=== PATIENT | female | born 1960 | race Caucasian/White ===

== ENCOUNTER 2020-02-19 13:32 | Emergency (ER) | payer OTHER, BC ==
[2020-02-19] MEDS ORDERED: Sodium Chloride 0.9% 10 ML Syringe FLUSH PRN (13:49)
[2020-02-19 14:08] LABS: ANION GAP 12.9 mEq/L (7-13); CHLORIDE,CL 105 mmol/L (98-107); SODIUM,NA 143 mmol/L (136-145)
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
[2020-02-19] MEDS ORDERED: fentaNYL 100 MCG/2 ML SDV IVPUSH ONE (14:36)
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
== END 2020-02-19 15:42 | disposition home or self-care (01) ==
LOC: DL.ED 13:32
DX: S50.312A Abrasion of left elbow, initial encounter (principal); S70.212A Abrasion, left hip, initial encounter; Z88.6 Allergy status to analgesic agent; Z91.040 Latex allergy status; Z88.5 Allergy status to narcotic agent; Z88.2 Allergy status to sulfonamides; Z88.0 Allergy status to penicillin; Z91.048 Other nonmedicinal substance allergy status; Z79.899 Other long term (current) drug therapy; V29.9XXA Motorcycle rider (driver) (passenger) injured in unspecified traffic accident, initial encounter
CPT/HCPCS: 36415; 70450; 71045; 72125; 72131; 72170; 73120; 80053; 80307; 84484; 85025; 93005; 96374; 99285; J3010

== ENCOUNTER 2020-03-05 04:12 | Observation (INO) | payer BC ==
[2020-03-05] MEDS ORDERED: Sodium Chloride 0.9% 1,000 ML IV ONE (04:28)
[2020-03-05 05:05] LABS: ANION GAP 10.2 mEq/L (7-13); CHLORIDE,CL 103 mmol/L (98-107); SODIUM,NA 140 mmol/L (136-145)
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
[2020-03-05] MEDS ORDERED: Ondansetron 4 MG/2 ML SDV IVPUSH PRN (07:27)
[2020-03-05] MEDS ORDERED: Sodium Chloride 0.9% 10 ML Syringe FLUSH PRN (07:27)
--- NOTE | 2020-03-05 10:40 | CT ---
PROCEDURE INFORMATION: Exam: CT Head Without Contrast Exam date and time: 03/05/2020 10:30 AM Age: 59 years old Clinical indication: Other: Confusion, head trauma; Additional info: Head trauma, confusion TECHNIQUE: Imaging protocol: Computed tomography of the head without contrast. Radiation optimization: All CT scans at this facility use at least one of these dose optimization techniques: automated exposure control; mA and/or kV adjustment per patient size (includes targeted exams where dose is matched to clinical indication); or iterative reconstruction. COMPARISON: CT Head wo Cont 02/19/2020 1:47 PM FINDINGS: Brain: Normal. No hemorrhage. Unremarkable white matter. No mass effect. Ventricles: Normal. No ventriculomegaly. Bones/joints: Unremarkable. No acute fracture. Sinuses: Visualized sinuses are unremarkable. No fluid levels. Mastoid air cells: Visualized mastoid air cells are well aerated. Soft tissues: Unremarkable. IMPRESSION: No acute intracranial abnormality.
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
[2020-03-05] MEDS: Levothyroxine 88 MCG Tab PO SCH (12:48)
[2020-03-05] MEDS: Sodium Chloride 0.9% 1,000 ML IV SCH ×2 (13:21→21:43)
[2020-03-05] MEDS ORDERED: Dextrose 5%-0.9% NaCl with KCl 1,000 ML IV SCH (23:00)
[2020-03-06] MEDS: Levothyroxine 88 MCG Tab PO SCH (05:45)
[2020-03-06 07:16] LABS: ANION GAP 10.7 mEq/L (7-13); CHLORIDE,CL 108 mmol/L (98-107); SODIUM,NA 143 mmol/L (136-145)
--- NOTE | 2020-03-06 12:32 | PCM.DCSUM1 ---
Discharge Summary - Hospital Course Free Text/Narrative:: 59-year-old with a history of anxiety, hypothyroidism. Presented with intentional overdose with unknown amounts of Xanax and Ambien. acute metabolic encephalopathy had negative Tylenol, salicylate level as well. CT head negative improved with Supportive measures Consulted behavioral health have safe discharge plan discharge with daughter hold tommie, xanax for now f/up with [facility] f/up with PMD Hypothyroidism Continue Synthroid Diagnosis: Stroke: No - Discharge Data Discharge Date: 03/06/20 Discharge Disposition: Home, Self-Care 01 Condition: Stable - Referral to Home Health Primary Care Physician: Kasandra Sal NP - Discharge Diagnosis/Problem(s) (1) Acute metabolic encephalopathy SNOMED Code(s): 13980197, 738014890 ICD Code: G93.41 - METABOLIC ENCEPHALOPATHY Status: Acute Current Visit: Yes (2) Hypothyroidism SNOMED Code(s): 16526467 ICD Code: E03.9 - HYPOTHYROIDISM, UNSPECIFIED Status: Acute Current Visit: Yes (3) Drug overdose, intentional SNOMED Code(s): 39581568 ICD Code: T50.902A - POISONING BY UNSP DRUG/MEDS/BIOL SUBST, SELF-HARM, INIT Status: Acute Current Visit: No Qualifiers: Encounter type: initial encounter Qualified Code(s): T50.902A - Poisoning by unspecified drugs, medicaments and biological substances, intentional self- harm, initial encounter - Patient Summary/Data Consults: Consultations 03/05/20 13:19 Consult to Case Management/Construction Accountant [CONS] Routine - Discharge Plan *PRESCRIPTION DRUG MONITORING PROGRAM REVIEWED*: Not Applicable *COPY OF PRESCRIPTION DRUG MONITORING REPORT IN PATIENT RONAL: Not Applicable Home Medications: Home Meds Cholecalciferol (Vitamin D3) [Vitamin D3] 500 unit PO DAILY 02/19/20 [History] Levothyroxine Sodium 88 mcg PO DAILY 02/19/20 [History] Venlafaxine HCl [Venlafaxine ER] 37.5 mg PO DAILY 03/05/20 [History] Oxygen Therapy Mode: Room Air Patient Handouts: Intentional Drug Overdose Referrals: Kasandra Sal NP [Primary Care Provider] - (in 2-3 days) - Discharge Summary/Plan Comment DC Time >30 min.: No - General Info Date of Service: 03/06/20 Functional Status: Reports: Tolerating Diet - Review of Systems General: Denies: Fever Pulmonary: Denies: Shortness of Breath Cardiovascular: Denies: Chest Pain, Edema Gastrointestinal: Denies: Abdominal Pain Neurological: Denies: Confusion, Trouble Speaking, Difficulty Walking Psychiatric: Denies: Confusion, Anxiety, Suicidal Ideation, Homicidal Ideation - Patient Data Vitals - Most Recent: Last Vital Signs Temp 97.7 F 03/06/20 08:04 Pulse 88 03/06/20 08:04 Resp 20 03/06/20 08:04 BP 137/80 03/06/20 08:04 Pulse Ox 96 03/06/20 08:04 Weight - Most Recent: 231 lb 2 oz I&O - Last 24 hours: Intake & Output 03/05/20 03/06/20 03/06/20 22:59 06:59 14:59 Intake Total 1531 410 Output Total 900 2300 Balance 631 -2300 410 Lab Results - Last 24 hrs: Laboratory Results - last 24 hr 03/05/20 03/05/20 03/06/20 Range/Units 16:45 22:45 05:30 WBC (5.0-10.0) 10^3/uL RBC (4.2-5.4) 10^6/uL Hgb (12.0-16.0) g/dL Hct (37.0-47.0) % MCV (80-100) fL MCH (27.0-34.0) pg MCHC (33.0-35.0) g/dL Plt Count (150-450) 10^3/uL Neut % (Auto) (42.2-75.2) % Lymph % (Auto) (20.5-50.1) % [place] % (Auto) (2-8) % Eos % (Auto) (1.0-3.0) % Baso % (Auto) (0.0-1.0) % Sodium 143 (136-145) mmol/L Potassium 3.7 (3.5-5.1) mmol/L Chloride 108 H (98-107) mmol/L Carbon Dioxide 28 (21-32) mmol/L Anion Gap 10.7 (7-13) mEq/L BUN 7 (7-18) mg/dL Creatinine 0.87 (0.55-1.02) mg/dL Est Cr Clr Drug Dosing 51.24 mL/min Estimated GFR (MDRD) > 60 Glucose 104 H (74-99) mg/dL POC Glucose 88 79 (70-105) mg/dl Calcium 8.1 L (8.5-10.1) mg/dL Phosphorus 2.4 L (2.6-4.7) mg/dL Magnesium 1.9 (1.8-2.4) mg/dL 03/06/20 03/06/20 03/06/20 Range/Units 05:30 05:35 07:57 WBC 5.3 (5.0-10.0) 10^3/uL RBC 4.09 L (4.2-5.4) 10^6/uL Hgb 12.6 (12.0-16.0) g/dL Hct 38.3 (37.0-47.0) % MCV 93.6 (80-100) fL MCH 30.8 (27.0-34.0) pg MCHC 32.9 L (33.0-35.0) g/dL Plt Count 155 (150-450) 10^3/uL Neut % (Auto) 63.1 (42.2-75.2) % Lymph % (Auto) 27.5 (20.5-50.1) % [place] % (Auto) 9.4 H (2-8) % Eos % (Auto) 0.0 L (1.0-3.0) % Baso % (Auto) 0.0 (0.0-1.0) % Sodium (136-145) mmol/L Potassium (3.5-5.1) mmol/L Chloride (98-107) mmol/L Carbon Dioxide (21-32) mmol/L Anion Gap (7-13) mEq/L BUN (7-18) mg/dL Creatinine (0.55-1.02) mg/dL Est Cr Clr Drug Dosing mL/min Estimated GFR (MDRD) Glucose (74-99) mg/dL POC Glucose 108 H 93 (70-105) mg/dl Calcium (8.5-10.1) mg/dL Phosphorus (2.6-4.7) mg/dL Magnesium (1.8-2.4) mg/dL 03/06/20 Range/Units 11:29 WBC (5.0-10.0) 10^3/uL RBC (4.2-5.4) 10^6/uL Hgb (12.0-16.0) g/dL Hct (37.0-47.0) % MCV (80-100) fL MCH (27.0-34.0) pg MCHC (33.0-35.0) g/dL Plt Count (150-450) 10^3/uL Neut % (Auto) (42.2-75.2) % Lymph % (Auto) (20.5-50.1) % [place] % (Auto) (2-8) % Eos % (Auto) (1.0-3.0) % Baso % (Auto) (0.0-1.0) % Sodium (136-145) mmol/L Potassium (3.5-5.1) mmol/L Chloride (98-107) mmol/L Carbon Dioxide (21-32) mmol/L Anion Gap (7-13) mEq/L BUN (7-18) mg/dL Creatinine (0.55-1.02) mg/dL Est Cr Clr Drug Dosing mL/min Estimated GFR (MDRD) Glucose (74-99) mg/dL POC Glucose 100 (70-105) mg/dl Calcium (8.5-10.1) mg/dL Phosphorus (2.6-4.7) mg/dL Magnesium (1.8-2.4) mg/dL Med Orders - Current: Current Medications Potassium Chloride/Dextrose/Sod Cl (D5 Ns With 20 Meq Kcl) 1,000 mls @ 125 mls/hr IV ASDIRECTED CAROL Last Admin: 03/05/20 23:16 Dose: 125 mls/hr Documented by: Levothyroxine Sodium (Synthroid) 88 mcg PO ACBREAKFAST CAROL Last Admin: 03/06/20 05:45 Dose: 88 mcg Documented by: Ondansetron HCl (Zofran) 4 mg IVPUSH Q6H PRN PRN Reason: Nausea/Vomiting Sodium Chloride (Saline Flush) 10 ml FLUSH ASDIRECTED PRN PRN Reason: Keep Vein Open Discontinued Medications Sodium Chloride (Normal Saline) 1,000 mls @ 999 mls/hr IV .BOLUS ONE Stop: 03/05/20 05:28 Last Admin: 03/05/20 04:41 Dose: 999 mls/hr Documented by: Sodium Chloride (Normal Saline) 1,000 mls @ 125 mls/hr IV ASDIRECTED COUNT INCLUDES THE [facility] Last Infusion: 03/05/20 23:16 Dose: 0 mls/hr Documented by: - Exam General: Reports: Alert, Oriented Neck: Reports: Supple Lungs: Reports: Clear to Auscultation, Normal Respiratory Effort Cardiovascular: Reports: Regular Rate, Regular Rhythm GI/Abdominal Exam: Normal Bowel Sounds, Soft, Non-Tender Extremities: No Pedal Edema Skin: Reports: Warm, Dry
== END 2020-03-06 12:55 | disposition home or self-care (01) ==
LOC: DL.ED 04:12 → DL.MS 06:05
PROVIDERS: ADMIT Internal Medicine; ATTEND Internal Medicine
DX: T42.4X2A Poisoning by benzodiazepines, intentional self-harm, initial encounter (principal); T42.6X2A Poisoning by other antiepileptic and sedative-hypnotic drugs, intentional self-harm, initial encounter; G93.41 Metabolic encephalopathy; E03.9 Hypothyroidism, unspecified; F41.9 Anxiety disorder, unspecified; F32.9 Major depressive disorder, single episode, unspecified; Z88.8 Allergy status to other drugs, medicaments and biological substances; Z91.040 Latex allergy status; Z88.5 Allergy status to narcotic agent; Z88.2 Allergy status to sulfonamides; Z79.890 Hormone replacement therapy; Z79.899 Other long term (current) drug therapy
CPT/HCPCS: 36415; 70450; 80048; 80053; 80305-QW; 80307; 82962; 83735; 84100; 85025; 93005; 96360; 96361; 99285-25; A9270-GY; G0378; J3480; J7030

== ENCOUNTER 2020-06-28 11:30 | Emergency (ER) | payer BC, OTHER ==
[2020-06-28] MEDS ORDERED: Naloxone 2 MG/2 ML Syringe IVPUSH ONE (11:43)
[2020-06-28 12:05] LABS: ANION GAP 15.7 mEq/L (7-13); CHLORIDE,CL 101 mmol/L (98-107); SODIUM,NA 138 mmol/L (136-145)
[2020-06-28 12:08] LABS: BENZODIAZEPINE,URINE POSITIVE (NEGATIVE); MDMA (ECSTASY), URINE NEGATIVE (NEGATIVE); METHADONE,URINE NEGATIVE (NEGATIVE); METHAMPHETAMINES,URINE NEGATIVE (NEGATIVE); OPIATES,URINE NEGATIVE (NEGATIVE)
[2020-06-28 12:09] LABS: AMPHETAMINES,URINE NEGATIVE (NEGATIVE); BARBITURATES,URINE NEGATIVE (NEGATIVE); OXYCODONE,URINE NEGATIVE (NEGATIVE); PHENCYCLIDINE,URINE NEGATIVE (NEGATIVE); TCA,URINE POSITIVE (NEGATIVE)
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
--- NOTE | 2020-06-28 12:14 | CT ---
PROCEDURE INFORMATION: Exam: CT Head Without Contrast Exam date and time: 06/28/2020 11:45 AM Age: 60 years old Clinical indication: Other: Unresponsive TECHNIQUE: Imaging protocol: Computed tomography of the head without contrast. Radiation optimization: All CT scans at this facility use at least one of these dose optimization techniques: automated exposure control; mA and/or kV adjustment per patient size (includes targeted exams where dose is matched to clinical indication); or iterative reconstruction. COMPARISON: CT Head wo Cont 03/05/2020 10:30 AM FINDINGS: Limitations: None. Brain: No mass, intracranial hemorrhage or brain edema. No transcortical defect. Normal cerebellum and brainstem. Cerebral ventricles: Normal. Bones/joints: Normal. Paranasal sinuses: Normal. Mastoid air cells: Normal. Vasculature: Unremarkable. Soft tissues: Unremarkable. IMPRESSION: No acute intracranial abnormality.
--- NOTE | 2020-06-28 12:16 | CR ---
PROCEDURE INFORMATION: Exam: XR Chest, 1 View Exam date and time: 06/28/2020 12:02 PM Age: 60 years old Clinical indication: Other: Unresponsive; Additional info: Chest pain TECHNIQUE: Imaging protocol: XR of the chest Views: 1 view. COMPARISON: CR Chest 1V Frontal 02/19/2020 1:59 PM FINDINGS: Lungs: Shallow inspiration and atelectasis. Pleural space: No pleural effusion or pneumothorax. Heart/Mediastinum: Normal heart and cardiomediastinal silhouette. Vasculature: Normal pulmonary vessel caliber. Normal aorta. Bones/joints: The bones are intact. IMPRESSION: Shallow inspiration and atelectasis. No acute disease or suspicious finding.
[2020-06-28 12:33] LABS: ACETAMINOPHEN 0 ug/mL (10-30 (Therapeutic))
--- NOTE | 2020-06-28 12:47 | PCM.SN.2 ---
- Free Text/Narrative Note: Intubation. Er provider requesting Pt to be intubated due to GCS 0f 3 with unresponsive Pt. [facility] present. Pt pre oxygenated w 100%O2 5 mg of rocuronium IV, 20 mg IV of Etomidate, 100 mg of IV Anectine At 1229. Cricoid pressure held, Pt intubated with #3 glidescope blade, cords visualized and 7.0 ETT through the cords. 22cm at lips. Pos fogging, bilateral breath sounds. OG tube placed with pos auscultation and light green/clear liquid returns. PCXR ordered and report given to flight team. All meds used provided by flight team. Procedure time 1215 to 1245
--- NOTE | 2020-06-28 12:52 | CR ---
EXAMINATION: Chest 1V Frontal SEX: Female AGE: 60 years CLINICAL HISTORY: 60-year-old unresponsive female. Tube placement. INTERPRETATION: (AP supine CXR) 1. Midline position endotracheal tube with tip position above the amado on a plane through the body of T3. 2. Nasogastric tube courses down the mediastinum off the lower edge of the film. 3. External environmental monitoring technician leads. 4. Normal cardiac silhouette (size and configuration). No pulmonary vascular congestion, cephalization of flow, alveolar edema or dependent pleural fluid accumulation (effusion). 5. No lung mass, hilar lymphadenopathy or focal lobar infiltrate/atelectasis. 6. No peripheral "groundglass" interstitial infiltrates or lung densities. 7. No pneumothorax or pneumomediastinum. CONCLUSION: Satisfactory ET and NG tube placements.
== END 2020-06-28 13:10 ==
LOC: DL.ED 11:30
DX: T42.8X2A Poisoning by antiparkinsonism drugs and other central muscle-tone depressants, intentional self-harm, initial encounter (principal); R40.1 Stupor; F41.9 Anxiety disorder, unspecified; Z88.2 Allergy status to sulfonamides; Z88.8 Allergy status to other drugs, medicaments and biological substances; Z88.6 Allergy status to analgesic agent; Z91.040 Latex allergy status; Z88.0 Allergy status to penicillin; Z79.899 Other long term (current) drug therapy; Z20.828 Contact with and (suspected) exposure to other viral communicable diseases
CPT/HCPCS: 31500; 36415; 70450; 71045; 80053; 80305-QW; 80307; 81003; 83735; 83880; 84484; 85025; 85379; 85610; 86140; 87040; 93005; 99285; 99285-25; U0002